=== PATIENT | female | born 2000 | race American Indian/Alaskan Native ===

== ENCOUNTER 2022-04-01 12:10 | Emergency (ER) | payer SELFPAY ==
[2022-04-01 12:56] VITALS: BP 113/78
[2022-04-01 13:51] LABS: Hematocrit 40.7 % (30.3-42.9); Hemoglobin 13.9 gm/dl (10.1-14.3); Mean Corpuscular HGB Conc 34 % (30-34); Mean Corpuscular Volume 93 fl (79-97); Platelet Count 192 K/mm3 (140-440); Red Blood Count 4.39 M/mm3 (3.65-5.03)
[2022-04-01 14:05] LABS: Blood Urea Nitrogen 8 mg/dL (7-17); Calcium 9.8 mg/dL (8.4-10.2); Hemolysis Index 6
[2022-04-01 14:08] LABS: BUN/Creatinine Ratio 13
[2022-04-01 14:27] LABS: HCG Qualitative,Urine Positive (Negative)
[2022-04-01 14:46] LABS: Bacteria,Urine 1+ /HPF (Negative); Mucus,Urine FEW /HPF
[2022-04-01 14:51] LABS: Color,Urine Straw (Yellow)
[2022-04-01 14:53] LABS: Bilirubin,Urine Negative (Negative)
[2022-04-01 14:54] LABS: Blood,Urine Trace (Negative)
[2022-04-01 14:55] LABS: Protein,Urine <15 mg/dL mg/dL (Negative); Urobilinogen,Urine < 2.0 mg/dL (<2.0)
[2022-04-01] MEDS ORDERED: AMOXICILLIN 500 MG CAP PO ONE (15:16)
--- NOTE | 2022-04-01 15:41 | Emergency Department Report ---
ED Female HPI - General Chief complaint: Urogenital-Female Stated complaint: PREG WKS? CRAMPING Time Seen by Provider: 04/01/22 13:42 Source: patient Mode of arrival: Ambulatory Limitations: No Limitations - History of Present Illness Initial comments: Patient is a 21-year-old that comes to the emergency room after having a positive test and complaining of abdominal cramping. Denies any vaginal bleeding. Complaint: other -: Gradual, days(s) Quality: cramping Consistency: intermittent Improves with: none Worsens with: none Are you Now?: Yes Associated Symptoms: denies other symptoms - Related Data Sexually active: Yes Allergies Allergy/AdvReac Type Severity Reaction Status Date / Time No Known Allergies Allergy Verified 04/01/22 12:56 ED Review of Systems ROS: Stated complaint: PREG WKS? CRAMPING Other details as noted in HPI Comment: All other systems reviewed and negative ED Past Medical Hx - Past Medical History Previous Medical History?: No - Surgical History Past Surgical History?: Yes Additional Surgical History: cyst removal - Family History Family history: no significant - Social History Smoking Status: Never Smoker Substance Use Type: None ED Physical Exam - General Limitations: No Limitations General appearance: alert, in no apparent distress - Head Head exam: Present: atraumatic, normocephalic - Eye Eye exam: Present: normal appearance - ENT ENT exam: Present: mucous membranes moist - Neck Neck exam: Present: normal inspection - Respiratory Respiratory exam: Present: normal lung sounds bilaterally. Absent: respiratory distress - Cardiovascular Cardiovascular Exam: Present: regular rate, normal rhythm. Absent: systolic murmur, diastolic murmur, rubs, gallop - GI/Abdominal GI/Abdominal exam: Present: soft, normal bowel sounds - Extremities Exam Extremities exam: Present: normal inspection - Back Exam Back exam: Present: normal inspection - Neurological Exam Neurological exam: Present: alert, oriented X3 - Psychiatric Psychiatric exam: Present: normal affect, normal mood - Skin Skin exam: Present: warm, dry, intact, normal color. Absent: rash ED Course Vital Signs 04/01/22 12:51 Temperature 98.9 F Pulse Rate 70 Respiratory 17 Rate Blood Pressure 113/78 O2 Sat by Pulse 98 Oximetry ED Medical Decision Making - Lab Data Result diagrams: 04/01/22 13:20 04/01/22 13:20 - Medical Decision Making Vital Signs 04/01/22 12:51 Temperature 98.9 F Pulse Rate 70 Respiratory 17 Rate Blood Pressure 113/78 O2 Sat by Pulse 98 Oximetry Lab Results 04/01/22 04/01/22 04/01/22 Range/Units 13:20 13:20 13:20 WBC 5.7 (4.5-11.0) K/mm3 RBC 4.39 (3.65-5.03) M/mm3 Hgb 13.9 (10.1-14.3) gm/dl Hct 40.7 (30.3-42.9) % MCV 93 (79-97) fl MCH 32 (28-32) pg MCHC 34 (30-34) % RDW 14.0 (13.2-15.2) % Plt Count 192 (140-440) K/mm3 Sodium 136 L (137-145) mmol/L Potassium 4.1 (3.6-5.0) mmol/L Chloride 101.6 (98-107) mmol/L Carbon Dioxide 23 (22-30) mmol/L Anion Gap 16 mmol/L BUN 8 (7-17) mg/dL Creatinine 0.6 (0.6-1.2) mg/dL Estimated GFR > 60 ml/min BUN/Creatinine Ratio 13 % Glucose 116 H (65-100) mg/dL Calcium 9.8 (8.4-10.2) mg/dL HCG, Quant 48507 H (0-4) mIU/mL Urine Color (Yellow) Urine Turbidity (Clear) Urine pH (5.0-7.0) Ur Specific [place] (1.003-1.030) Urine Protein (Negative) mg/dL Urine Glucose (UA) (Negative) mg/dL Urine Ketones (Negative) mg/dL Urine Blood (Negative) Urine Nitrite (Negative) Ur Reducing Substances Urine Bilirubin (Negative) Urine Ictotest Urine Urobilinogen (<2.0) mg/dL Ur Leukocyte Esterase (Negative) Urine WBC (Auto) (0.0-6.0) /HPF Urine RBC (Auto) (0.0-6.0) /HPF U Epithel Cells (Auto) (0-13.0) /HPF Urine Bacteria (Auto) (Negative) /HPF Urine Mucus /HPF Urine HCG, Qual (Negative) Blood Type Ord Rhogam Gestat Weeks WEEKS 04/01/22 04/01/22 Range/Units 13:20 14:07 WBC (4.5-11.0) K/mm3 RBC (3.65-5.03) M/mm3 Hgb (10.1-14.3) gm/dl Hct (30.3-42.9) % MCV (79-97) fl MCH (28-32) pg MCHC (30-34) % RDW (13.2-15.2) % Plt Count (140-440) K/mm3 Sodium (137-145) mmol/L Potassium (3.6-5.0) mmol/L Chloride (98-107) mmol/L Carbon Dioxide (22-30) mmol/L Anion Gap mmol/L BUN (7-17) mg/dL Creatinine (0.6-1.2) mg/dL Estimated GFR ml/min BUN/Creatinine Ratio % Glucose (65-100) mg/dL Calcium (8.4-10.2) mg/dL HCG, Quant (0-4) mIU/mL Urine Color Straw (Yellow) Urine Turbidity Clear (Clear) Urine pH 7.0 (5.0-7.0) Ur Specific [place] 1.010 (1.003-1.030) Urine Protein <15 mg/dl (Negative) mg/dL Urine Glucose (UA) Negative (Negative) mg/dL Urine Ketones Negative (Negative) mg/dL Urine Blood Trace (Negative) Urine Nitrite Negative (Negative) Ur Reducing Substances Not Reportable Urine Bilirubin Negative (Negative) Urine Ictotest Not Reportable Urine Urobilinogen < 2.0 (<2.0) mg/dL Ur Leukocyte Esterase Moderate (Negative) Urine WBC (Auto) 10.0 H (0.0-6.0) /HPF Urine RBC (Auto) 7.0 (0.0-6.0) /HPF U Epithel Cells (Auto) 17.0 H (0-13.0) /HPF Urine Bacteria (Auto) 1+ (Negative) /HPF Urine Mucus Few /HPF Urine HCG, Qual Positive A (Negative) Blood Type A POSITIVE Ord Rhogam Gestat Weeks Rh pos WEEKS pt upset in waiting for ultrasound. Patient states that she is hungry and cannot wait any longer. I have explained to her that life-threatening emergencies are taking for imaging prior to nonlife threats. She states that she is too hungry to wait for this. Nurse present for conversation. Patient betancourt s a significant other at bedside. Patient states so no she cannot wait that long. She has left AMA stating that her life and the life of the fetus could be in jeopardy. - Differential Diagnosis ro ectopic Critical care attestation.: If time is entered above; I have spent that time in minutes in the direct care of this critically ill patient, excluding procedure time. ED Disposition Clinical Impression: Abdominal pain Qualifiers: Abdominal location: unspecified location Qualified Code(s): R10.9 - Unspecified abdominal pain Disposition: 07 LEFT AWOL/ELOPED Is pt being admited?: No Does the pt Need Aspirin: No Condition: Stable Time of Disposition: 15:39
== END 2022-04-01 15:39 | disposition left against medical advice (07) ==
LOC: ED 12:10
DX: O26.891 Other specified pregnancy related conditions, first trimester (principal); R10.9 Unspecified abdominal pain; Z3A.00 Weeks of gestation of pregnancy not specified; Z98.890 Other specified postprocedural states
CPT/HCPCS: 36415; 80048; 81001; 81025; 84702; 85027; 86900; 86901; 87086; 99283

== ENCOUNTER 2022-04-07 08:44 | Emergency (ER) | payer SELFPAY ==
[2022-04-07 08:49] VITALS: BP 114/81
[2022-04-07 09:50] LABS: Bilirubin,Urine NEG (Negative); Blood,Urine SM (Negative); Color,Urine Yellow (Yellow); Protein,Urine <15 mg/dL mg/dL (Negative); Urobilinogen,Urine < 2.0 mg/dL (<2.0)
[2022-04-07 09:59] LABS: Bacteria,Urine 1+ /HPF (Negative); Mucus,Urine FEW /HPF
[2022-04-07 10:00] LABS: HCG Qualitative,Urine Positive (Negative)
== END 2022-04-07 18:43 | disposition left against medical advice (07) ==
LOC: ED 08:44
DX: O26.891 Other specified pregnancy related conditions, first trimester (principal); R10.9 Unspecified abdominal pain; Z53.21 Procedure and treatment not carried out due to patient leaving prior to being seen by health care provider; Z3A.01 Less than 8 weeks gestation of pregnancy
CPT/HCPCS: 81001; 81025; 87086

== ENCOUNTER 2022-05-13 08:49 | Emergency (ER) | payer MEDICAID ==
[2022-05-13 09:00] VITALS: BP 113/78
[2022-05-13 09:56] LABS: Hematocrit 37.2 % (30.3-42.9); Hemoglobin 12.5 gm/dl (10.1-14.3); Mean Corpuscular HGB Conc 34 % (30-34); Mean Corpuscular Volume 94 fl (79-97); Platelet Count 199 K/mm3 (140-440); Red Blood Count 3.97 M/mm3 (3.65-5.03); Red Cell Distribution Width 13.3 % (13.2-15.2)
[2022-05-13 10:17] LABS: BUN/Creatinine Ratio 10; Blood Urea Nitrogen 5 mg/dL (7-17); Calcium 9.5 mg/dL (8.4-10.2); Hemolysis Index 2
--- NOTE | 2022-05-13 10:34 | Emergency Department Report ---
ED Female HPI - General Chief complaint: Vaginal Bleeding Stated complaint: 11WKS PREGANT/BLEEDNG Time Seen by Provider: 05/13/22 09:08 Source: patient Mode of arrival: Ambulatory Limitations: No Limitations - Related Data Allergies Allergy/AdvReac Type Severity Reaction Status Date / Time No Known Allergies Allergy Verified 04/01/22 12:56 ED Review of Systems ROS: Stated complaint: 11WKS PREGANT/BLEEDNG Other details as noted in HPI Comment: All other systems reviewed and negative ED Past Medical Hx - Past Medical History Previous Medical History?: No - Surgical History Past Surgical History?: No Additional Surgical History: cyst removal, - Family History Family history: no significant - Social History Smoking Status: Never Smoker Substance Use Type: None ED Physical Exam - General Limitations: No Limitations General appearance: alert, in no apparent distress - Head Head exam: Present: atraumatic, normocephalic - Eye Eye exam: Present: normal appearance - ENT ENT exam: Present: mucous membranes moist - Neck Neck exam: Present: normal inspection - Respiratory Respiratory exam: Present: normal lung sounds bilaterally. Absent: respiratory distress - Cardiovascular Cardiovascular Exam: Present: regular rate, normal rhythm. Absent: systolic murmur, diastolic murmur, rubs, gallop - GI/Abdominal GI/Abdominal exam: Present: soft, normal bowel sounds - Extremities Exam Extremities exam: Present: normal inspection - Back Exam Back exam: Present: normal inspection - Neurological Exam Neurological exam: Present: alert, oriented X3 - Psychiatric Psychiatric exam: Present: normal affect, normal mood - Skin Skin exam: Present: warm, dry, intact, normal color. Absent: rash ED Course Vital Signs 05/13/22 08:56 Temperature 98.9 F Pulse Rate 74 Respiratory 14 Rate Blood Pressure 113/78 O2 Sat by Pulse 98 Oximetry ED Medical Decision Making - Lab Data Result diagrams: 05/13/22 09:33 05/13/22 09:33 - Radiology Data Radiology results: report reviewed, image reviewed - Medical Decision Making Labs 05/13/22 05/13/22 05/13/22 09:28 09:33 09:33 WBC 5.4 RBC 3.97 Hgb 12.5 Hct 37.2 MCV 94 MCH 32 MCHC 34 RDW 13.3 Plt Count 199 Sodium 136 L Potassium 3.7 Chloride 102.2 Carbon Dioxide 23 Anion Gap 15 BUN 5 L Creatinine 0.5 L Estimated GFR > 60 BUN/Creatinine Ratio 10 Glucose 116 H Calcium 9.5 HCG, Quant Blood Type A POSITIVE Ord Rhogam Gestat Weeks Rh pos 05/13/22 09:33 WBC RBC Hgb Hct MCV MCH MCHC RDW Plt Count Sodium Potassium Chloride Carbon Dioxide Anion Gap BUN Creatinine Estimated GFR BUN/Creatinine Ratio Glucose Calcium HCG, Quant 04339 H Blood Type Ord Rhogam Gestat Weeks Vital Signs 05/13/22 08:56 Temperature 98.9 F Pulse Rate 74 Respiratory 14 Rate Blood Pressure 113/78 O2 Sat by Pulse 98 Oximetry Critical care attestation.: If time is entered above; I have spent that time in minutes in the direct care of this critically ill patient, excluding procedure time. ED Disposition Clinical Impression: Vaginal bleeding during Disposition: 01 HOME / SELF CARE / HOMELESS Is pt being admited?: No Does the pt Need Aspirin: No Condition: Stable Additional Instructions: FOLLOW UP WITH OBGYN IN 48 HOURS TYLENOL FOR PAIN PELVIC REST Referrals: IAN CAMERON MD [Staff Physician] - 3-5 Days Time of Disposition: 12:53
--- NOTE | 2022-05-13 12:05 | Ultrasound Report ---
ULTRASOUND OBSTETRIC INDICATION / CLINICAL INFORMATION: vag bleed in preg. Clinical Gestational Age (GA) in weeks, days: 11, 2 TECHNIQUE: Transabdominal. COMPARISON: None available. FINDINGS: GESTATIONAL SAC: Well-defined oval shape and intrauterine in location. YOLK SAC: Not seen EMBRYO/FETUS: No significant abnormality. - Kinsman-Rump Length = 4.56 cm = 11, 2 weeks, days - Heart Rate, beats per minute (if present) = 164 Small hypoechoic areas are noted adjacent to the gestational sac suggesting several small areas of rosales bchorionic hemorrhage. ADNEXA: There is a 1.2 cm cyst in the right ovary. There is a 3.9 cm cyst in the left ovary. FREE FLUID: None. ADDITIONAL FINDINGS: None. IMPRESSION: 1. Single, living intrauterine with estimated sonographic age of 11, 2 weeks, days. 2. Small hypodensities adjacent to the gestational sac consistent with several subchorionic bleeds. Signer Name: Edis Odom MD Signed: 05/13/2022 12:01 PM Workstation Name: [email or web address]
== END 2022-05-13 13:00 | disposition home or self-care (01) ==
LOC: ED 08:49
DX: O20.8 Other hemorrhage in early pregnancy (principal); Z3A.11 11 weeks gestation of pregnancy
CPT/HCPCS: 36415; 76801; 80048; 84702; 85027; 86900; 86901; 99284